=== PATIENT | male | born 1960 | race African-American/Black ===

== ENCOUNTER → 2020-07-07 | Outpatient (CLI) | payer BC ==
[2015-01-15 22:00] VITALS: BP 144/92
[~2020-07-07] MED LIST: GLIP5TAB10 PO; LISI20TA18 PO; METF10007 PO
--- NOTE | 2020-07-07 11:49 | RAD ---
EXAM: Nuclear gastric emptying scan. HISTORY: Gastroparesis. Nausea. COMPARISON: None. TECHNIQUE: Serial static images were obtained over the stomach following oral administration of 2 mCi 99m-Tc sulfur colloid. FINDINGS: The stomach empties into the small bowel without evidence of reflux in the area of the esop hagus. Gastric emptying percents: 1 hour 44% (normal range 34.8-91%) 2 hour 15% (normal range 2.7-60%) 3 hour 3% (normal range 0.5-28%) The estimated time for half emptying of gastric contents, i.e. 'gastric emptying time' is 60 minutes (normal is 66 +/- 22 minutes). IMPRESSION: Normal gastric emptying scan. Electronically signed by: Kimberli Smith MD (07/07/2020 11:47 AM) [id number]
== END ==
LOC: NM 07:58
PROVIDERS: ATTEND Internal Medicine Gastroenterology
DX: K31.84 Gastroparesis (principal)
CPT/HCPCS: 78264; A9541